=== PATIENT | male | born 1975 | race Caucasian/White ===

== ENCOUNTER 2020-12-05 10:47 | Inpatient (IN) | payer MEDICARE, OTHER ==
[~2020-12-05] VITALS: Ht 188 cm; Wt 134.9 kg
[2020-12-05 12:18] LABS: EOSINOPHIL 0.5 % (0-5); HCT 47.8 % (42.0-52.0); HGB 15.9 g/dl (13.2-18.0); LYMPHOCYTE 12.3 % (15-48); MCH 29.3 pg (25.0-31.0); MCHC 33.3 g/dL (32.0-36.0); MCV 88.2 fL (78.0-100.0); MONOCYTE 9.2 % (0-12); MPV 10.9 fL (6.0-9.5); NEUTROPHIL 76.6 % (41-80); NRBC 0; PLT 247 K/uL (150-400); RBC 5.42 M/uL (4.70-6.00); RDW 16.5 % (11.5-14.0); WBC 11.3 K/uL (4.0-10.5)
[2020-12-05 12:21] LABS: ALBUMIN 3.7 g/dL (3.4-5.0); BILIRUBIN - TOTAL 1.5 mg/dL (0.2-1.0); BUN/CREAT RATIO (CALC) 20.3 RATIO; CREATININE 0.69 mg/dL (0.67-1.17); GLOBULIN (CALCULATION) 3.8 g/dL; MAGNESIUM 1.6 mg/dL (1.8-2.4); POTASSIUM 3.3 mmol/L (3.5-5.1); TOTAL PROTEIN 7.5 g/dL (6.4-8.2)
[2020-12-05 12:29] LABS: LACTIC ACID 5.3 mmol/L (0.4-1.9)
[2020-12-05 13:33] LABS: CORONAVIRUS 2019 SARS-COV-2 NEGATIVE (NEGATIVE)
[2020-12-05 13:34] LABS: INFLUENZA A NAA INVALID (NEGATIVE)
[2020-12-05 15:44] LABS: BILIRUBIN 2+ mg/dL (NEGATIVE); BLOOD 1+ Ery/uL (NEGATIVE); CLARITY CLEAR (CLEAR); GLUCOSE (U) NORMAL (NORMAL); LEUKOCYTES NEGATIVE Leu/uL (NEGATIVE); NITRITE NEGATIVE (NEGATIVE); PROTEIN 2+ mg/dL (NEGATIVE); SPECIFIC GRAVITY 1.025 (1.001-1.030)
[2020-12-05 15:45] LABS: COLOR AMBER (YELLOW)
[2020-12-05 15:59] LABS: BACTERIA 1+; MUCOUS MODERATE
[2020-12-06 03:51] LABS: BASOPHIL 0.8 % (0-2); EOSINOPHIL 1.1 % (0-5); HCT 45.3 % (42.0-52.0); HGB 14.9 g/dl (13.2-18.0); LYMPHOCYTE 13.4 % (15-48); MCH 29.6 pg (25.0-31.0); MCHC 32.9 g/dL (32.0-36.0); MCV 90.1 fL (78.0-100.0); MONOCYTE 6.9 % (0-12); MPV 10.8 fL (6.0-9.5); NEUTROPHIL 77.4 % (41-80); NRBC 0; PLT 174 K/uL (150-400); RBC 5.03 M/uL (4.70-6.00); RDW 16.3 % (11.5-14.0); WBC 9.2 K/uL (4.0-10.5)
[2020-12-06 04:00] LABS: INR 1.1 (0.9-1.2); PROTHROMBIN TIME 13.5 SECONDS (11.4-13.6)
[2020-12-06 04:05] LABS: ALBUMIN 3.1 g/dL (3.4-5.0); BILIRUBIN - TOTAL 1.6 mg/dL (0.2-1.0); BUN/CREAT RATIO (CALC) 11.9 RATIO; CREATININE 1.01 mg/dL (0.67-1.17); GLOBULIN (CALCULATION) 3.2 g/dL; MAGNESIUM 1.8 mg/dL (1.8-2.4); POTASSIUM 3.8 mmol/L (3.5-5.1); TOTAL PROTEIN 6.3 g/dL (6.4-8.2)
[2020-12-08 05:46] LABS: BASOPHIL 0.5 % (0-2); EOSINOPHIL 3.2 % (0-5); HCT 44.4 % (42.0-52.0); HGB 14.2 g/dl (13.2-18.0); LYMPHOCYTE 14.8 % (15-48); MCH 29.5 pg (25.0-31.0); MCV 92.1 fL (78.0-100.0); MPV 11.6 fL (6.0-9.5); NRBC 0; PLT 149 K/uL (150-400); RBC 4.82 M/uL (4.70-6.00); RDW 16.1 % (11.5-14.0); WBC 12.8 K/uL (4.0-10.5)
[2020-12-08 06:09] LABS: INR 1.03 (0.9-1.2); PROTHROMBIN TIME 12.8 SECONDS (11.4-13.6)
[2020-12-08 06:18] LABS: ALBUMIN 2.9 g/dL (3.4-5.0); BILIRUBIN - TOTAL 0.7 mg/dL (0.2-1.0); BUN/CREAT RATIO (CALC) 13.1 RATIO; CREATININE 0.84 mg/dL (0.67-1.17); GLOBULIN (CALCULATION) 3.1 g/dL; MAGNESIUM 1.5 mg/dL (1.8-2.4); POTASSIUM 3.9 mmol/L (3.5-5.1)
[2020-12-08 07:08] LABS: HBSAG SCREEN Negative (Negative); HEP B CORE AB, TOT Negative (Negative); HEP C VIRUS AB <0.1 (0.0-0.9)
[2020-12-08 13:22] LABS: BILIRUBIN NEGATIVE (NEGATIVE); BLOOD NEGATIVE Ery/uL (NEGATIVE); CLARITY CLEAR (CLEAR); COLOR YELLOW (YELLOW); GLUCOSE (U) NORMAL (NORMAL); LEUKOCYTES NEGATIVE Leu/uL (NEGATIVE); NITRITE NEGATIVE (NEGATIVE); PROTEIN NEGATIVE (NEGATIVE); pH 8.5 (5.0-9.0)
[2020-12-08 13:26] LABS: SQUAMOUS EPITHELIAL CELLS RARE; URINARY RBC RARE; URINARY WBC RARE
[2020-12-09 05:47] LABS: BASOPHIL 0.5 % (0-2); HCT 44.1 % (42.0-52.0); LYMPHOCYTE 15.9 % (15-48); MCH 29.6 pg (25.0-31.0); MCHC 31.7 g/dL (32.0-36.0); MCV 93.2 fL (78.0-100.0); MONOCYTE 8.3 % (0-12); MPV 11.7 fL (6.0-9.5); NEUTROPHIL 71.7 % (41-80); NRBC 0; PLT 154 K/uL (150-400); RBC 4.73 M/uL (4.70-6.00); RDW 16.4 % (11.5-14.0); WBC 13.3 K/uL (4.0-10.5)
[2020-12-09 06:24] LABS: ALBUMIN 2.9 g/dL (3.4-5.0); BILIRUBIN - TOTAL 0.7 mg/dL (0.2-1.0); BUN/CREAT RATIO (CALC) 14.1 RATIO; CREATININE 0.92 mg/dL (0.67-1.17); GLOBULIN (CALCULATION) 3.2 g/dL; MAGNESIUM 1.8 mg/dL (1.8-2.4); PHOSPHORUS 3.9 mg/dL (2.6-4.7); POTASSIUM 4.5 mmol/L (3.5-5.1); TOTAL PROTEIN 6.1 g/dL (6.4-8.2)
[2020-12-09 06:40] LABS: BAND 2 % (0-10); EOSINOPHIL(M) 3 % (0-5); LYMPHOCYTE(M) 16 % (15-48); MONOCYTE(M) 7 % (0-12); NEUTROPHILS(M) 70 % (41-80); PLATELET ESTIMATE NORMAL; TOTAL CELL COUNT 100; VARIANT LYMPHOCYTE 2
[2020-12-09 06:41] LABS: PLATELET MORPHOLOGY NORMAL
[2020-12-09] MEDS ORDERED: DIAZEPAM 5MG TAB5 MG PO (14:50)
== END 2020-12-09 15:19 | disposition home or self-care (01) | DRG 897 ==
LOC: FER 10:47 → FTCU 15:18
PROVIDERS: Emergency Medicine; Internal Medicine; ADMIT Internal Medicine
PROC: HZ2ZZZZ Detoxification Services for Substance Abuse Treatment (ICD-10-PCS; principal; 2020-12-08)
DX: F10.131 Alcohol abuse with withdrawal delirium (principal); E87.2 Acidosis; K70.10 Alcoholic hepatitis without ascites; Y90.0 Blood alcohol level of less than 20 mg/100 ml; I10 Essential (primary) hypertension; E86.0 Dehydration; Z20.822 Contact with and (suspected) exposure to COVID-19; M54.5 Low back pain
CPT/HCPCS: 36415; 71045; 80053; 81001; 82150; 83605; 83690; 83735; 84100; 84145; 84484; 85025; 85610; 86704; 86706; 86708; 86803; 87040; 87077; 87186; 87340; 93005; G0378; G0480; J0153; J1650; J2060; J2405; J2550; J2560; J3360; J3411; J3475; J7030; J7120; U0002

== ENCOUNTER 2021-01-10 10:52 | Inpatient (IN) | payer MEDICARE, OTHER ==
[~2021-01-10] VITALS: Ht 188 cm; Wt 130.9 kg
[~2021-01-10 10:52] MED LIST: DIAZEPAM 5MG TAB5 MG PO
[2021-01-10 11:43] LABS: BASOPHIL 1.1 % (0-2); HCT 45.5 % (42.0-52.0); HGB 15.5 g/dl (13.2-18.0); MCH 30.9 pg (25.0-31.0); MCHC 34.1 g/dL (32.0-36.0); MCV 90.8 fL (78.0-100.0); MONOCYTE 12.1 % (0-12); MPV 11.2 fL (6.0-9.5); NRBC 0; PLT 149 K/uL (150-400); RBC 5.01 M/uL (4.70-6.00); RDW 16.8 % (11.5-14.0); WBC 8.4 K/uL (4.0-10.5)
[2021-01-10 12:05] LABS: ALBUMIN 3.5 g/dL (3.4-5.0); ALKALINE PHOSHATASE 71 U/L (46-116); ALT 143 U/L (16-63); AST 113 U/L (15-37); BILIRUBIN - TOTAL 1.3 mg/dL (0.2-1.0); BUN 12 mg/dL (7-18); BUN/CREAT RATIO (CALC) 9.8 RATIO; CHLORIDE 95 mmol/L (98-107); CO2 (BICARBONATE) 29 mmol/L (21-32); CREATININE 1.22 mg/dL (0.67-1.17); GLOBULIN (CALCULATION) 3.2 g/dL; GLUCOSE 100 mg/dL (74-106); MAGNESIUM 1.3 mg/dL (1.8-2.4); POTASSIUM 2.6 mmol/L (3.5-5.1); TOTAL PROTEIN 6.7 g/dL (6.4-8.2)
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
[2021-01-10 14:31] LABS: BILIRUBIN 2+ mg/dL (NEGATIVE); BLOOD NEGATIVE Ery/uL (NEGATIVE); GLUCOSE (U) NORMAL (NORMAL); LEUKOCYTES NEGATIVE Leu/uL (NEGATIVE); NITRITE POSITIVE (NEGATIVE); PROTEIN 2+ mg/dL (NEGATIVE); SPECIFIC GRAVITY 1.025 (1.001-1.030); pH 6.5 (5.0-9.0)
[2021-01-10 14:32] LABS: CLARITY CLOUDY (CLEAR); COLOR ORANGE (YELLOW)
[2021-01-10 14:34] LABS: AMPHETAMINES POSITIVE (NEGATIVE); BARBITURATES POSITIVE (NEGATIVE); ECSTASY (MDMA) POSITIVE (NEGATIVE); MARIJUANA (THC) NEGATIVE (NEGATIVE); METHADONE NEGATIVE (NEGATIVE); OPIATES NEGATIVE (NEGATIVE); OXYCODONE NEGATIVE (NEGATIVE)
[2021-01-10 14:42] LABS: MUCOUS LARGE
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
[2021-01-11 06:01] LABS: BASOPHIL 1.3 % (0-2); EOSINOPHIL 5.5 % (0-5); HCT 42.2 % (42.0-52.0); LYMPHOCYTE 18.6 % (15-48); MCHC 33.2 g/dL (32.0-36.0); MCV 93.4 fL (78.0-100.0); MONOCYTE 13.9 % (0-12); MPV 11.5 fL (6.0-9.5); NEUTROPHIL 59.8 % (41-80); NRBC 0; PLT 124 K/uL (150-400); RBC 4.52 M/uL (4.70-6.00); RDW 16.8 % (11.5-14.0); WBC 6.9 K/uL (4.0-10.5)
[2021-01-11 06:18] LABS: BILIRUBIN - TOTAL 0.9 mg/dL (0.2-1.0); CREATININE 1.08 mg/dL (0.67-1.17); POTASSIUM 2.6 mmol/L (3.5-5.1)
[2021-01-11 06:19] LABS: MAGNESIUM 1.8 mg/dL (1.8-2.4)
[2021-01-12 05:50] LABS: BASOPHIL 1.1 % (0-2); EOSINOPHIL 4.9 % (0-5); HCT 41.2 % (42.0-52.0); HGB 13.3 g/dl (13.2-18.0); LYMPHOCYTE 19.5 % (15-48); MCH 30.4 pg (25.0-31.0); MCHC 32.3 g/dL (32.0-36.0); MCV 94.3 fL (78.0-100.0); MONOCYTE 16.9 % (0-12); MPV 11.6 fL (6.0-9.5); NEUTROPHIL 56.3 % (41-80); NRBC 0; PLT 158 K/uL (150-400); RBC 4.37 M/uL (4.70-6.00); WBC 7.1 K/uL (4.0-10.5)
[2021-01-12 06:12] LABS: ALBUMIN 2.8 g/dL (3.4-5.0); BILIRUBIN - TOTAL 0.6 mg/dL (0.2-1.0); BUN/CREAT RATIO (CALC) 11.7 RATIO; CREATININE 1.11 mg/dL (0.67-1.17); MAGNESIUM 1.7 mg/dL (1.8-2.4); PHOSPHORUS 3.4 mg/dL (2.6-4.7); POTASSIUM 3.2 mmol/L (3.5-5.1); TOTAL PROTEIN 5.8 g/dL (6.4-8.2)
[2021-01-13 05:25] LABS: HCT 40.7 % (42.0-52.0); HGB 13.3 g/dl (13.2-18.0); MCH 31.2 pg (25.0-31.0); MCHC 32.7 g/dL (32.0-36.0); MCV 95.5 fL (78.0-100.0); MPV 11.8 fL (6.0-9.5); RBC 4.26 M/uL (4.70-6.00); RDW 17.2 % (11.5-14.0); WBC 6.9 K/uL (4.0-10.5)
[2021-01-13 05:38] LABS: BUN/CREAT RATIO (CALC) 11.6 RATIO; CREATININE 0.86 mg/dL (0.67-1.17)
--- NOTE | 2021-01-13 10:38 | NUR ---
01/13/21 Update information has been faxed to [facility]. A reposponse is expected by noon. - [facility] will not consider patient until he has detoxed for 5 days.
--- NOTE | 2021-01-13 12:39 | NUR ---
01/13/21 [facility] will accept Mr. Dan to their detox program. Patient will be discharged and transport himself. Mr. Dan was provided with the address to [facility], meetings, and counseling services. - A report was given to Jazmín Collins and JAVON Singleton RN.
[2021-01-13] MEDS ORDERED: VENTOLIN HFA IN18 GM INH (15:55)
== END 2021-01-13 17:00 | disposition home or self-care (01) | DRG 897 ==
LOC: FER 10:52 → FICU 12:28 → FTCU 01-11 13:16
PROVIDERS: Emergency Medicine; Hospitalist; ADMIT Internal Medicine
PROC: HZ2ZZZZ Detoxification Services for Substance Abuse Treatment (ICD-10-PCS; principal; 2021-01-10)
DX: F10.231 Alcohol dependence with withdrawal delirium (principal); E87.2 Acidosis; N30.00 Acute cystitis without hematuria; E83.42 Hypomagnesemia; Z20.822 Contact with and (suspected) exposure to COVID-19; F15.10 Other stimulant abuse, uncomplicated; F19.10 Other psychoactive substance abuse, uncomplicated; K70.10 Alcoholic hepatitis without ascites; E87.6 Hypokalemia; M79.605 Pain in left leg; M79.604 Pain in right leg; Z98.890 Other specified postprocedural states; Z98.84 Bariatric surgery status
CPT/HCPCS: 36415; 71045; 80048; 80053; 80305; 81001; 82607; 83605; 83735; 84100; 85025; 87088; 94010; 94640; C9113; G0480; J0696; J1650; J2060; J2560; J3360; J3411; J3475; J3486; J7030; U0002